=== PATIENT | female | born 1970 | race Caucasian/White ===

== ENCOUNTER 2020-02-10 09:00 | Outpatient (CLI) | payer MEDICARE | END 2020-02-10 23:59 | disposition home or self-care (01) | LOC: MSC 09:00 | PROVIDERS: ATTEND Internal Medicine | DX: G35 Multiple sclerosis (principal); G90.09 Other idiopathic peripheral autonomic neuropathy; I11.9 Hypertensive heart disease without heart failure; R29.898 Other symptoms and signs involving the musculoskeletal system; N31.9 Neuromuscular dysfunction of bladder, unspecified; Z87.440 Personal history of urinary (tract) infections; Z96.0 Presence of urogenital implants; G47.00 Insomnia, unspecified; K21.9 Gastro-esophageal reflux disease without esophagitis; M54.2 Cervicalgia; L89.90 Pressure ulcer of unspecified site, unspecified stage; Z99.3 Dependence on wheelchair; Z79.899 Other long term (current) drug therapy ==

== ENCOUNTER 2020-02-19 09:00 | Outpatient (CLI) | payer MEDICARE, OTHER | END 2020-02-19 23:59 | disposition home or self-care (01) | LOC: WOU 09:00 | PROVIDERS: ATTEND Podiatrist Foot & Ankle Surgery | DX: L60.1 Onycholysis (principal); B35.1 Tinea unguium; G35 Multiple sclerosis; Z99.3 Dependence on wheelchair | CPT/HCPCS: 11730 ==

== ENCOUNTER 2020-02-24 08:00 | Outpatient (CLI) | payer MEDICARE, OTHER ==
[2020-02-24] MEDS ORDERED: CLOTRIMAZOLE 1% 15 GM TUBE TP ONE (08:42)
[2020-02-24 09:25] LABS: BILIRUBIN,URINE NEGATIVE (NEGATIVE); BLOOD, URINE SMALL Ery/uL (NEGATIVE); KETONES,URINE NEGATIVE (NEGATIVE); LEUKOCYTE ESTERASE ,URINE LARGE (NEGATIVE); NITRITE, URINE POSITIVE (NEGATIVE); PROTEIN,URINE 100 mg/dl (NEGATIVE); UGLUCOSE NEGATIVE (NEGATIVE); UROBILINOGEN,URINE 0.2 EU/dL (0.2)
[2020-02-24 15:07] LABS: APPEARANCE,URINE CLEAR (CLEAR); BACTERIA,URINE Many /HPF (None Seen); SQUAMOUS EPITHELIAL CELL,UR Moderate /HPF (None Seen); WBC,URINE 21-50 /HPF (0-3)
[2020-02-24 15:08] LABS: COLOR,URINE YELLOW (YELLOW); URINE AMORPHOUS PHOSPHATES Few /HPF (None Seen)
== END 2020-02-24 23:59 | disposition home health service (06) ==
LOC: WOU 08:00
PROVIDERS: ATTEND Specialist
DX: L89.322 Pressure ulcer of left buttock, stage 2 (principal); L89.312 Pressure ulcer of right buttock, stage 2; G35 Multiple sclerosis; M62.81 Muscle weakness (generalized); B35.1 Tinea unguium; L60.1 Onycholysis; Z79.899 Other long term (current) drug therapy; Z96.0 Presence of urogenital implants
CPT/HCPCS: 81001; 87077; 87086; G0463; 81000-TC

== ENCOUNTER 2020-03-18 12:48 | Outpatient (CLI) | payer MEDICARE, OTHER | END 2020-03-18 23:59 | disposition home or self-care (01) | LOC: MSC 12:48 | PROVIDERS: ATTEND Internal Medicine | DX: B37.49 Other urogenital candidiasis (principal); G90.09 Other idiopathic peripheral autonomic neuropathy; G35 Multiple sclerosis; R29.898 Other symptoms and signs involving the musculoskeletal system; I11.9 Hypertensive heart disease without heart failure; N31.9 Neuromuscular dysfunction of bladder, unspecified; G47.00 Insomnia, unspecified; Z87.440 Personal history of urinary (tract) infections; K76.89 Other specified diseases of liver; K21.9 Gastro-esophageal reflux disease without esophagitis; Z79.899 Other long term (current) drug therapy ==

== ENCOUNTER 2020-06-17 08:00 | Outpatient (CLI) | payer MEDICARE, OTHER | END 2020-06-17 23:59 | disposition home or self-care (01) | LOC: WOU 08:00 | PROVIDERS: ATTEND Podiatrist Foot & Ankle Surgery | DX: B35.1 Tinea unguium (principal); L60.1 Onycholysis; G35 Multiple sclerosis; M62.81 Muscle weakness (generalized); L89.313 Pressure ulcer of right buttock, stage 3; L89.322 Pressure ulcer of left buttock, stage 2; M21.372 Foot drop, left foot; M21.371 Foot drop, right foot; M79.672 Pain in left foot; M79.671 Pain in right foot; Z79.899 Other long term (current) drug therapy | CPT/HCPCS: G0463 ==

== ENCOUNTER 2020-06-22 08:00 | Outpatient (CLI) | payer MEDICARE, OTHER ==
[2020-06-22] MEDS ORDERED: CLOTRIMAZOLE 1% 15 GM TUBE TP ONE (08:34)
[2020-06-22] MEDS ORDERED: Z GUARD REMEDY 2 OZ OINT TP ONE (08:34)
== END 2020-06-22 23:59 | disposition home health service (06) ==
LOC: WOU 08:00
PROVIDERS: ATTEND Specialist
DX: L89.322 Pressure ulcer of left buttock, stage 2 (principal); L89.312 Pressure ulcer of right buttock, stage 2; G35 Multiple sclerosis; M21.372 Foot drop, left foot; M21.371 Foot drop, right foot; M62.81 Muscle weakness (generalized); L60.1 Onycholysis; B35.1 Tinea unguium; Z79.899 Other long term (current) drug therapy
CPT/HCPCS: G0463

== ENCOUNTER 2020-06-23 09:10 | Outpatient (CLI) | payer MEDICARE, OTHER | END 2020-06-23 23:59 | disposition home or self-care (01) | LOC: MSC 09:10 | PROVIDERS: ATTEND Internal Medicine | DX: G90.09 Other idiopathic peripheral autonomic neuropathy (principal); J20.9 Acute bronchitis, unspecified; G35 Multiple sclerosis; R29.898 Other symptoms and signs involving the musculoskeletal system; I11.9 Hypertensive heart disease without heart failure; N31.9 Neuromuscular dysfunction of bladder, unspecified; G47.00 Insomnia, unspecified; K21.9 Gastro-esophageal reflux disease without esophagitis; L89.90 Pressure ulcer of unspecified site, unspecified stage; B37.41 Candidal cystitis and urethritis; Z87.440 Personal history of urinary (tract) infections; Z79.899 Other long term (current) drug therapy ==

== ENCOUNTER 2020-08-09 08:55 | Outpatient (CLI) | payer MEDICARE, OTHER | END 2020-08-09 23:59 | disposition home or self-care (01) | LOC: MSC 08:55 | PROVIDERS: ATTEND Internal Medicine | DX: G35 Multiple sclerosis (principal); Z87.09 Personal history of other diseases of the respiratory system; R29.898 Other symptoms and signs involving the musculoskeletal system; N31.2 Flaccid neuropathic bladder, not elsewhere classified; G47.00 Insomnia, unspecified; K21.9 Gastro-esophageal reflux disease without esophagitis; Z87.440 Personal history of urinary (tract) infections; M54.2 Cervicalgia; Z74.01 Bed confinement status; L89.159 Pressure ulcer of sacral region, unspecified stage ==

== ENCOUNTER 2020-09-08 08:55 | Outpatient (CLI) | payer MEDICARE, OTHER ==
[2020-09-08 10:33] LABS: BILIRUBIN,URINE NEGATIVE (NEGATIVE); COLOR,URINE YELLOW (YELLOW); LEUKOCYTE ESTERASE ,URINE LARGE (NEGATIVE); NITRITE, URINE POSITIVE (NEGATIVE); PROTEIN,URINE 30 mg/dl (NEGATIVE); UGLUCOSE NEGATIVE (NEGATIVE); UROBILINOGEN,URINE 0.2 EU/dL (0.2)
[2020-09-08 12:34] LABS: WBC,URINE TOO NUMEROUS TO COUN /HPF (0-3)
[2020-09-08 12:35] LABS: BACTERIA,URINE Many /HPF (None Seen)
[2020-09-08 12:36] LABS: SQUAMOUS EPITHELIAL CELL,UR Moderate /HPF (None Seen)
== END 2020-09-08 23:59 | disposition home or self-care (01) ==
LOC: MSC 08:55
PROVIDERS: ATTEND Internal Medicine
DX: M79.651 Pain in right thigh (principal); N39.0 Urinary tract infection, site not specified; M24.541 Contracture, right hand; G35 Multiple sclerosis; G90.09 Other idiopathic peripheral autonomic neuropathy; R29.898 Other symptoms and signs involving the musculoskeletal system; N31.9 Neuromuscular dysfunction of bladder, unspecified; I11.9 Hypertensive heart disease without heart failure; G47.00 Insomnia, unspecified; M54.2 Cervicalgia; L89.90 Pressure ulcer of unspecified site, unspecified stage; Z79.899 Other long term (current) drug therapy; Z79.2 Long term (current) use of antibiotics; Z99.3 Dependence on wheelchair; G82.20 Paraplegia, unspecified; Z74.01 Bed confinement status
CPT/HCPCS: 81001; 87086 ×2; 87186 ×2; G0463

== ENCOUNTER 2020-11-28 13:06 | Outpatient (CLI) | payer MEDICARE, OTHER | END 2020-11-28 23:59 | disposition home or self-care (01) | LOC: MSC 13:06 | PROVIDERS: ATTEND Internal Medicine | DX: R10.12 Left upper quadrant pain (principal); M75.01 Adhesive capsulitis of right shoulder; N39.0 Urinary tract infection, site not specified; M20.091 Other deformity of right finger(s); M79.659 Pain in unspecified thigh; M24.541 Contracture, right hand; G35 Multiple sclerosis; Z99.3 Dependence on wheelchair; G90.09 Other idiopathic peripheral autonomic neuropathy; R29.898 Other symptoms and signs involving the musculoskeletal system; I11.9 Hypertensive heart disease without heart failure; N31.9 Neuromuscular dysfunction of bladder, unspecified; G47.00 Insomnia, unspecified; K21.9 Gastro-esophageal reflux disease without esophagitis; L89.90 Pressure ulcer of unspecified site, unspecified stage; Z79.2 Long term (current) use of antibiotics; Z79.899 Other long term (current) drug therapy ==

== ENCOUNTER 2020-12-02 09:00 | Outpatient (CLI) | payer MEDICARE, OTHER ==
[2020-12-02] MEDS ORDERED: BACI/NEOM/POLY B OINT PKT 1 UDPKT PACKET ONE (09:17)
== END 2020-12-02 23:59 | disposition home health service (06) ==
LOC: WOU 09:00
PROVIDERS: ATTEND Podiatrist Foot & Ankle Surgery
DX: L60.0 Ingrowing nail (principal); L60.1 Onycholysis; B35.1 Tinea unguium; M62.81 Muscle weakness (generalized); M21.372 Foot drop, left foot; M21.371 Foot drop, right foot; L89.322 Pressure ulcer of left buttock, stage 2; Z99.3 Dependence on wheelchair; Z79.899 Other long term (current) drug therapy
CPT/HCPCS: 11730; 11732

== ENCOUNTER 2020-12-07 09:41 | Outpatient (CLI) | payer MEDICARE, OTHER | END 2020-12-07 23:59 | disposition home or self-care (01) | LOC: MRI 09:41 | PROVIDERS: ATTEND Internal Medicine | DX: M19.011 Primary osteoarthritis, right shoulder (principal); M75.00 Adhesive capsulitis of unspecified shoulder | CPT/HCPCS: 73221-TC ==

== ENCOUNTER 2020-12-14 11:00 | Outpatient (CLI) | payer MEDICARE, OTHER ==
[2020-12-14] MEDS ORDERED: LIDOCAINE HCL/MPF 1% 30 ML VIAL IJ ONE (11:43)
[2020-12-14] MEDS ORDERED: SILVER NITRATE APPLICATOR 1 EA BOX ONE (11:56)
== END 2020-12-14 23:59 | disposition home health service (06) ==
LOC: WOU 11:00
PROVIDERS: ATTEND Specialist
DX: L89.322 Pressure ulcer of left buttock, stage 2 (principal); G35 Multiple sclerosis; L60.0 Ingrowing nail; L60.1 Onycholysis; B35.1 Tinea unguium; M21.372 Foot drop, left foot; M21.371 Foot drop, right foot; Z79.899 Other long term (current) drug therapy
CPT/HCPCS: 11104; 87070; 87075; 87102; 87186; 88305; J3490

== ENCOUNTER 2020-12-21 08:30 | Outpatient (CLI) | payer MEDICARE, OTHER | END 2020-12-21 23:59 | disposition short-term general hospital (02) | LOC: WOU 08:30 | PROVIDERS: ATTEND Specialist | DX: L89.322 Pressure ulcer of left buttock, stage 2 (principal); G35 Multiple sclerosis; M62.81 Muscle weakness (generalized); B35.1 Tinea unguium; L60.1 Onycholysis; L60.0 Ingrowing nail; M21.372 Foot drop, left foot; M21.371 Foot drop, right foot; Z99.3 Dependence on wheelchair; Z79.899 Other long term (current) drug therapy | CPT/HCPCS: 97597; A6197 ==

== ENCOUNTER → 2020-12-27 | Outpatient (CLI) | payer MEDICARE, OTHER | END | disposition home or self-care (01) | LOC: MSC 15:00 | PROVIDERS: ATTEND Internal Medicine | DX: M75.102 Unspecified rotator cuff tear or rupture of left shoulder, not specified as traumatic (principal); M77.8 Other enthesopathies, not elsewhere classified; M75.02 Adhesive capsulitis of left shoulder; G90.09 Other idiopathic peripheral autonomic neuropathy; N39.0 Urinary tract infection, site not specified; M24.541 Contracture, right hand; M79.651 Pain in right thigh; G35 Multiple sclerosis; R29.898 Other symptoms and signs involving the musculoskeletal system; I11.9 Hypertensive heart disease without heart failure; N31.9 Neuromuscular dysfunction of bladder, unspecified; G47.00 Insomnia, unspecified; K21.9 Gastro-esophageal reflux disease without esophagitis; L89.90 Pressure ulcer of unspecified site, unspecified stage; Z74.01 Bed confinement status; Z79.2 Long term (current) use of antibiotics; Z79.899 Other long term (current) drug therapy ==

== ENCOUNTER 2021-01-27 08:30 | Outpatient (CLI) | payer MEDICARE, OTHER ==
[2021-01-27] MEDS ORDERED: UREA 10% -AHA 4% CREAM 57 GM TUBE ONE (09:16)
== END 2021-01-27 23:59 | disposition home health service (06) ==
LOC: WOU 08:30
PROVIDERS: ATTEND Podiatrist Foot & Ankle Surgery
DX: L60.0 Ingrowing nail (principal); B35.1 Tinea unguium; L60.1 Onycholysis; G35 Multiple sclerosis; M62.81 Muscle weakness (generalized); M21.372 Foot drop, left foot; M21.371 Foot drop, right foot; L89.322 Pressure ulcer of left buttock, stage 2; Z79.899 Other long term (current) drug therapy
CPT/HCPCS: G0463

== ENCOUNTER → 2021-02-20 | Outpatient (CLI) | payer MEDICARE, OTHER | END | disposition home or self-care (01) | LOC: MSC 15:13 | PROVIDERS: ATTEND Internal Medicine | DX: R31.9 Hematuria, unspecified (principal); M77.8 Other enthesopathies, not elsewhere classified; M75.100 Unspecified rotator cuff tear or rupture of unspecified shoulder, not specified as traumatic; M75.00 Adhesive capsulitis of unspecified shoulder; N39.0 Urinary tract infection, site not specified; M24.541 Contracture, right hand; M79.651 Pain in right thigh; G35 Multiple sclerosis; Z99.3 Dependence on wheelchair; G90.09 Other idiopathic peripheral autonomic neuropathy; I11.9 Hypertensive heart disease without heart failure; G47.00 Insomnia, unspecified; K21.9 Gastro-esophageal reflux disease without esophagitis; Z74.01 Bed confinement status; Z79.2 Long term (current) use of antibiotics; Z79.899 Other long term (current) drug therapy ==

== ENCOUNTER 2021-03-01 10:20 | Outpatient (CLI) | payer MEDICARE, OTHER | END 2021-03-01 23:59 | disposition home health service (06) | LOC: WOU 10:20 | PROVIDERS: ATTEND Specialist | DX: L89.320 Pressure ulcer of left buttock, unstageable (principal); L89.890 Pressure ulcer of other site, unstageable; G35 Multiple sclerosis; G82.50 Quadriplegia, unspecified; R32 Unspecified urinary incontinence; Z74.09 Other reduced mobility; Z99.3 Dependence on wheelchair; G62.9 Polyneuropathy, unspecified; M62.50 Muscle wasting and atrophy, not elsewhere classified, unspecified site; L60.1 Onycholysis; B35.1 Tinea unguium; M21.371 Foot drop, right foot; M21.372 Foot drop, left foot; L60.0 Ingrowing nail; Z88.1 Allergy status to other antibiotic agents; Z88.2 Allergy status to sulfonamides | CPT/HCPCS: A6209; G0463 ==

== ENCOUNTER 2021-03-14 09:00 | Outpatient (CLI) | payer MEDICARE, OTHER | END 2021-03-14 23:59 | disposition home or self-care (01) | LOC: MSC 09:00 | PROVIDERS: ATTEND Internal Medicine | DX: R10.9 Unspecified abdominal pain (principal); M79.81 Nontraumatic hematoma of soft tissue; M77.8 Other enthesopathies, not elsewhere classified; M75.100 Unspecified rotator cuff tear or rupture of unspecified shoulder, not specified as traumatic; M75.00 Adhesive capsulitis of unspecified shoulder; N39.0 Urinary tract infection, site not specified; N31.9 Neuromuscular dysfunction of bladder, unspecified; M24.541 Contracture, right hand; M79.651 Pain in right thigh; G35 Multiple sclerosis; G90.09 Other idiopathic peripheral autonomic neuropathy; I11.9 Hypertensive heart disease without heart failure; G47.00 Insomnia, unspecified; K21.9 Gastro-esophageal reflux disease without esophagitis; L89.90 Pressure ulcer of unspecified site, unspecified stage; Z74.01 Bed confinement status; Z79.2 Long term (current) use of antibiotics; Z79.899 Other long term (current) drug therapy ==

== ENCOUNTER 2021-03-15 10:00 | Outpatient (CLI) | payer MEDICARE, OTHER ==
[2021-03-15] MEDS ORDERED: LIDOCAINE SOLN 4% 50 ML BOTTLE ONE (10:21)
[2021-03-15] MEDS ORDERED: COLLAGENASE 5 GM TUBE UD TP ONE (10:51)
== END 2021-03-15 23:59 | disposition home health service (06) ==
LOC: WOU 10:00
PROVIDERS: ATTEND Specialist
DX: L89.013 Pressure ulcer of right elbow, stage 3 (principal); L89.323 Pressure ulcer of left buttock, stage 3; Z88.1 Allergy status to other antibiotic agents; Z88.2 Allergy status to sulfonamides; G35 Multiple sclerosis; Z99.3 Dependence on wheelchair; M21.372 Foot drop, left foot; M21.371 Foot drop, right foot; B35.1 Tinea unguium; L60.1 Onycholysis; M62.81 Muscle weakness (generalized); L60.0 Ingrowing nail; Z79.899 Other long term (current) drug therapy
CPT/HCPCS: 11042

== ENCOUNTER 2021-03-22 09:35 | Outpatient (CLI) | payer MEDICARE, OTHER | END 2021-03-22 23:59 | disposition home or self-care (01) | LOC: VASLAB 09:35 | PROVIDERS: ATTEND Internal Medicine | DX: I87.2 Venous insufficiency (chronic) (peripheral) (principal); G35 Multiple sclerosis; Z99.3 Dependence on wheelchair | CPT/HCPCS: G0463 ==

== ENCOUNTER 2021-03-29 09:15 | Outpatient (CLI) | payer MEDICARE, OTHER | END 2021-03-29 23:59 | disposition home health service (06) | LOC: WOU 09:15 | PROVIDERS: ATTEND Specialist | DX: L89.013 Pressure ulcer of right elbow, stage 3 (principal); L89.323 Pressure ulcer of left buttock, stage 3; G35 Multiple sclerosis; L60.1 Onycholysis; B35.1 Tinea unguium; M62.81 Muscle weakness (generalized); M21.372 Foot drop, left foot; M21.371 Foot drop, right foot; Z79.899 Other long term (current) drug therapy | CPT/HCPCS: G0463 ==

== ENCOUNTER 2021-04-06 09:00 | Outpatient (CLI) | payer MEDICARE, OTHER | END 2021-04-06 23:59 | disposition home or self-care (01) | LOC: MSC 09:00 | PROVIDERS: ATTEND Internal Medicine | DX: R19.7 Diarrhea, unspecified (principal); M77.8 Other enthesopathies, not elsewhere classified; M75.100 Unspecified rotator cuff tear or rupture of unspecified shoulder, not specified as traumatic; M75.00 Adhesive capsulitis of unspecified shoulder; N39.0 Urinary tract infection, site not specified; N31.9 Neuromuscular dysfunction of bladder, unspecified; M24.541 Contracture, right hand; M79.651 Pain in right thigh; G90.09 Other idiopathic peripheral autonomic neuropathy; R29.898 Other symptoms and signs involving the musculoskeletal system; I11.9 Hypertensive heart disease without heart failure; G47.00 Insomnia, unspecified; K21.9 Gastro-esophageal reflux disease without esophagitis; L89.90 Pressure ulcer of unspecified site, unspecified stage; Z74.01 Bed confinement status; Z99.3 Dependence on wheelchair; Z79.2 Long term (current) use of antibiotics; Z79.899 Other long term (current) drug therapy ==

== ENCOUNTER 2021-04-07 08:35 | Outpatient (CLI) | payer MEDICARE, OTHER ==
[2021-04-07] MEDS ORDERED: SILVER NITRATE APPLICATOR 1 EA BOX ONE (08:53)
== END 2021-04-07 23:59 | disposition home health service (06) ==
LOC: WOU 08:35
PROVIDERS: ATTEND Podiatrist Foot & Ankle Surgery
DX: L60.0 Ingrowing nail (principal); L60.1 Onycholysis; R60.0 Localized edema; G35 Multiple sclerosis; M21.372 Foot drop, left foot; M21.371 Foot drop, right foot; M62.81 Muscle weakness (generalized); Z99.3 Dependence on wheelchair; L89.323 Pressure ulcer of left buttock, stage 3; L89.013 Pressure ulcer of right elbow, stage 3; Z79.899 Other long term (current) drug therapy
CPT/HCPCS: G0463

== ENCOUNTER → 2021-04-19 | Outpatient (CLI) | payer MEDICARE, OTHER | END | disposition home or self-care (01) | LOC: MSC 14:30 | PROVIDERS: ATTEND Internal Medicine | DX: R19.7 Diarrhea, unspecified (principal); D75.1 Secondary polycythemia; M77.8 Other enthesopathies, not elsewhere classified; M75.100 Unspecified rotator cuff tear or rupture of unspecified shoulder, not specified as traumatic; M75.00 Adhesive capsulitis of unspecified shoulder; N39.0 Urinary tract infection, site not specified; N31.9 Neuromuscular dysfunction of bladder, unspecified; M24.541 Contracture, right hand; M79.651 Pain in right thigh; G90.09 Other idiopathic peripheral autonomic neuropathy; R29.898 Other symptoms and signs involving the musculoskeletal system; I11.9 Hypertensive heart disease without heart failure; G47.00 Insomnia, unspecified; K21.9 Gastro-esophageal reflux disease without esophagitis; L89.90 Pressure ulcer of unspecified site, unspecified stage; Z74.01 Bed confinement status; Z99.3 Dependence on wheelchair; Z79.2 Long term (current) use of antibiotics; Z79.899 Other long term (current) drug therapy ==

== ENCOUNTER 2021-05-04 14:00 | Outpatient (CLI) | payer MEDICARE, OTHER | END 2021-05-04 23:59 | disposition home or self-care (01) | LOC: MSC 14:00 | PROVIDERS: ATTEND Internal Medicine | DX: G35 Multiple sclerosis (principal); R19.7 Diarrhea, unspecified; D75.1 Secondary polycythemia; M77.8 Other enthesopathies, not elsewhere classified; M75.100 Unspecified rotator cuff tear or rupture of unspecified shoulder, not specified as traumatic; M75.00 Adhesive capsulitis of unspecified shoulder; N39.0 Urinary tract infection, site not specified; N31.9 Neuromuscular dysfunction of bladder, unspecified; Z96.0 Presence of urogenital implants; M24.541 Contracture, right hand; M79.651 Pain in right thigh; G90.09 Other idiopathic peripheral autonomic neuropathy; R29.898 Other symptoms and signs involving the musculoskeletal system; I11.9 Hypertensive heart disease without heart failure; G47.00 Insomnia, unspecified; K21.9 Gastro-esophageal reflux disease without esophagitis; L89.90 Pressure ulcer of unspecified site, unspecified stage; Z74.01 Bed confinement status; Z99.3 Dependence on wheelchair; Z79.2 Long term (current) use of antibiotics; Z79.899 Other long term (current) drug therapy ==

== ENCOUNTER 2021-05-17 14:00 | Outpatient (CLI) | payer MEDICARE, OTHER | END 2021-05-17 23:59 | disposition home or self-care (01) | LOC: MSC 14:00 | PROVIDERS: ATTEND Internal Medicine | DX: R25.2 Cramp and spasm (principal); G35 Multiple sclerosis; Z99.3 Dependence on wheelchair; R19.7 Diarrhea, unspecified; D75.1 Secondary polycythemia; M77.8 Other enthesopathies, not elsewhere classified; M75.100 Unspecified rotator cuff tear or rupture of unspecified shoulder, not specified as traumatic; M75.00 Adhesive capsulitis of unspecified shoulder; Z87.440 Personal history of urinary (tract) infections; M24.541 Contracture, right hand; M79.651 Pain in right thigh; G90.09 Other idiopathic peripheral autonomic neuropathy; R29.898 Other symptoms and signs involving the musculoskeletal system; I11.9 Hypertensive heart disease without heart failure; N31.9 Neuromuscular dysfunction of bladder, unspecified; Z96.0 Presence of urogenital implants; G47.00 Insomnia, unspecified; K21.9 Gastro-esophageal reflux disease without esophagitis; L89.90 Pressure ulcer of unspecified site, unspecified stage; Z74.01 Bed confinement status; Z79.2 Long term (current) use of antibiotics; Z79.899 Other long term (current) drug therapy ==

== ENCOUNTER 2021-05-23 09:00 | Outpatient (CLI) | payer MEDICARE, OTHER | END 2021-05-23 23:59 | disposition home or self-care (01) | LOC: MSC 09:00 | PROVIDERS: ATTEND Internal Medicine | DX: G35 Multiple sclerosis (principal); Z99.3 Dependence on wheelchair; R25.2 Cramp and spasm; R19.7 Diarrhea, unspecified; D75.1 Secondary polycythemia; M77.8 Other enthesopathies, not elsewhere classified; M75.100 Unspecified rotator cuff tear or rupture of unspecified shoulder, not specified as traumatic; M75.00 Adhesive capsulitis of unspecified shoulder; Z87.440 Personal history of urinary (tract) infections; Z79.2 Long term (current) use of antibiotics; M24.541 Contracture, right hand; M79.651 Pain in right thigh; G90.09 Other idiopathic peripheral autonomic neuropathy; R29.898 Other symptoms and signs involving the musculoskeletal system; I11.9 Hypertensive heart disease without heart failure; N31.9 Neuromuscular dysfunction of bladder, unspecified; Z96.0 Presence of urogenital implants; G47.00 Insomnia, unspecified; K21.9 Gastro-esophageal reflux disease without esophagitis; L89.90 Pressure ulcer of unspecified site, unspecified stage; Z74.01 Bed confinement status; Z79.899 Other long term (current) drug therapy ==

== ENCOUNTER → 2021-06-21 | Outpatient (CLI) | payer MEDICARE, OTHER | END | disposition home or self-care (01) | LOC: MSC 15:00 | PROVIDERS: ATTEND Internal Medicine | DX: G35 Multiple sclerosis (principal); Z99.3 Dependence on wheelchair; G83.89 Other specified paralytic syndromes; D75.1 Secondary polycythemia; M77.8 Other enthesopathies, not elsewhere classified; M75.100 Unspecified rotator cuff tear or rupture of unspecified shoulder, not specified as traumatic; M75.00 Adhesive capsulitis of unspecified shoulder; Z87.440 Personal history of urinary (tract) infections; Z79.2 Long term (current) use of antibiotics; M24.541 Contracture, right hand; M79.651 Pain in right thigh; G90.09 Other idiopathic peripheral autonomic neuropathy; R29.898 Other symptoms and signs involving the musculoskeletal system; I11.9 Hypertensive heart disease without heart failure; N31.9 Neuromuscular dysfunction of bladder, unspecified; Z96.0 Presence of urogenital implants; G47.00 Insomnia, unspecified; K21.9 Gastro-esophageal reflux disease without esophagitis; L89.90 Pressure ulcer of unspecified site, unspecified stage; Z74.01 Bed confinement status; Z79.899 Other long term (current) drug therapy ==

== ENCOUNTER 2021-07-20 11:45 | Outpatient (CLI) | payer MEDICARE, OTHER | END 2021-07-20 23:59 | disposition home or self-care (01) | LOC: MSC 11:45 | PROVIDERS: ATTEND Internal Medicine | DX: Z20.822 Contact with and (suspected) exposure to COVID-19 (principal); G35 Multiple sclerosis; G83.89 Other specified paralytic syndromes; Z99.3 Dependence on wheelchair; D75.1 Secondary polycythemia; M75.100 Unspecified rotator cuff tear or rupture of unspecified shoulder, not specified as traumatic; M75.00 Adhesive capsulitis of unspecified shoulder; Z87.440 Personal history of urinary (tract) infections; Z79.2 Long term (current) use of antibiotics; M24.541 Contracture, right hand; G90.09 Other idiopathic peripheral autonomic neuropathy; I11.9 Hypertensive heart disease without heart failure; N31.9 Neuromuscular dysfunction of bladder, unspecified; Z96.0 Presence of urogenital implants; G47.00 Insomnia, unspecified; K21.9 Gastro-esophageal reflux disease without esophagitis; L89.90 Pressure ulcer of unspecified site, unspecified stage; Z74.01 Bed confinement status; Z79.899 Other long term (current) drug therapy ==

== ENCOUNTER 2021-08-18 08:50 | Outpatient (CLI) | payer MEDICARE, OTHER | END 2021-08-18 23:59 | disposition home health service (06) | LOC: WOU 08:50 | PROVIDERS: ATTEND Podiatrist Foot & Ankle Surgery | DX: L60.0 Ingrowing nail (principal); B35.1 Tinea unguium; L60.1 Onycholysis; G35 Multiple sclerosis; M62.81 Muscle weakness (generalized); M21.372 Foot drop, left foot; M21.371 Foot drop, right foot; Z99.3 Dependence on wheelchair | CPT/HCPCS: G0463 ==

== ENCOUNTER → 2021-08-29 | Outpatient (CLI) | payer MEDICARE, OTHER | END | disposition home or self-care (01) | LOC: MSC 02-20 15:15 | PROVIDERS: ATTEND Internal Medicine | DX: G35 Multiple sclerosis (principal); Z99.3 Dependence on wheelchair; Z20.822 Contact with and (suspected) exposure to COVID-19; G83.89 Other specified paralytic syndromes; D75.1 Secondary polycythemia; M75.100 Unspecified rotator cuff tear or rupture of unspecified shoulder, not specified as traumatic; M75.00 Adhesive capsulitis of unspecified shoulder; Z87.440 Personal history of urinary (tract) infections; Z79.2 Long term (current) use of antibiotics; M24.541 Contracture, right hand; G90.09 Other idiopathic peripheral autonomic neuropathy; I11.9 Hypertensive heart disease without heart failure; N31.9 Neuromuscular dysfunction of bladder, unspecified; Z96.0 Presence of urogenital implants; G47.00 Insomnia, unspecified; K21.9 Gastro-esophageal reflux disease without esophagitis; L89.90 Pressure ulcer of unspecified site, unspecified stage; Z74.01 Bed confinement status; Z79.899 Other long term (current) drug therapy ==

== ENCOUNTER → 2021-09-12 | Outpatient (CLI) | payer MEDICARE, OTHER | END | disposition home or self-care (01) | LOC: MSC 14:00 | PROVIDERS: ATTEND Internal Medicine | DX: G35 Multiple sclerosis (principal); Z99.3 Dependence on wheelchair; G83.89 Other specified paralytic syndromes; L89.92 Pressure ulcer of unspecified site, stage 2; Z74.01 Bed confinement status; Z20.822 Contact with and (suspected) exposure to COVID-19; D75.1 Secondary polycythemia; M75.100 Unspecified rotator cuff tear or rupture of unspecified shoulder, not specified as traumatic; M75.00 Adhesive capsulitis of unspecified shoulder; Z87.440 Personal history of urinary (tract) infections; Z79.2 Long term (current) use of antibiotics; M24.541 Contracture, right hand; G90.09 Other idiopathic peripheral autonomic neuropathy; I11.9 Hypertensive heart disease without heart failure; N31.9 Neuromuscular dysfunction of bladder, unspecified; Z96.0 Presence of urogenital implants; G47.00 Insomnia, unspecified; K21.9 Gastro-esophageal reflux disease without esophagitis; Z79.899 Other long term (current) drug therapy ==

== ENCOUNTER 2021-09-13 12:25 | Outpatient (CLI) | payer MEDICARE, OTHER ==
[2021-09-13] MEDS ORDERED: Z GUARD REMEDY 2 OZ OINT TP ONE (13:29)
== END 2021-09-13 23:59 | disposition home or self-care (01) ==
LOC: WOU 12:25
PROVIDERS: ATTEND Specialist
DX: L89.322 Pressure ulcer of left buttock, stage 2 (principal); L60.0 Ingrowing nail; G35 Multiple sclerosis; L60.1 Onycholysis; B35.1 Tinea unguium; M21.372 Foot drop, left foot; M21.371 Foot drop, right foot; M62.81 Muscle weakness (generalized); Z79.899 Other long term (current) drug therapy
CPT/HCPCS: G0463

== ENCOUNTER → 2021-10-12 | Outpatient (CLI) | payer MEDICARE, OTHER | END | disposition home or self-care (01) | LOC: MSC 11:00 | PROVIDERS: ATTEND Internal Medicine | DX: G35 Multiple sclerosis (principal); Z99.3 Dependence on wheelchair; L89.92 Pressure ulcer of unspecified site, stage 2; G83.89 Other specified paralytic syndromes; Z74.01 Bed confinement status; Z20.822 Contact with and (suspected) exposure to COVID-19; D75.1 Secondary polycythemia; M75.100 Unspecified rotator cuff tear or rupture of unspecified shoulder, not specified as traumatic; M75.00 Adhesive capsulitis of unspecified shoulder; Z87.440 Personal history of urinary (tract) infections; Z79.2 Long term (current) use of antibiotics; M24.541 Contracture, right hand; G90.09 Other idiopathic peripheral autonomic neuropathy; I11.9 Hypertensive heart disease without heart failure; N31.9 Neuromuscular dysfunction of bladder, unspecified; Z96.0 Presence of urogenital implants; G47.00 Insomnia, unspecified; K21.9 Gastro-esophageal reflux disease without esophagitis; Z79.899 Other long term (current) drug therapy ==

== ENCOUNTER 2021-10-16 09:21 | Outpatient (CLI) | payer MEDICARE, OTHER ==
[2021-10-16 10:49] LABS: BASOPHILS # (AUTO) 0.1 K/uL (0.0-0.2); BASOPHILS % (AUTO) 0.6 % (0.0-2.0); EOSINOPHILS % (AUTO) 1.5 % (0.0-6.0); HEMATOCRIT 49 % (33-45); HEMOGLOBIN 16.6 g/dL (11.5-14.8); LYMPHOCYTES # (AUTO) 2.7 K/uL (0.8-4.8); LYMPHOCYTES % (AUTO) 31.8 % (20.0-44.0); MEAN CORPUSCULAR HGB CONC 34 g/dl (31.0-36.0); MEAN CORPUSCULAR VOLUME 89 fL (82-100); MONOCYTES # (AUTO) 0.4 K/uL (0.1-1.30); MONOCYTES % (AUTO) 4.2 % (2.0-12.0); NEUTROPHILS # (AUTO) 5.3 K/uL (1.8-8.9); NEUTROPHILS % (AUTO) 61.9 % (43.0-81.0); PLATELET COUNT (AUTO) 295 K/uL (150-450); RED BLOOD CELL COUNT(AUTO) 5.53 MIL/uL (4.0-5.2); WHITE BLOOD COUNT (AUTO) 8.6 K/uL (4.3-11.0)
[2021-10-16 11:39] LABS: ALBUMIN 3.3 g/dL (3.4-5.0); BILIRUBIN,TOTAL 0.4 mg/dL (0.2-1.0); CALCIUM, SERUM 8.6 mg/dL (8.5-10.1); CREATININE 0.7 mg/dL (0.6-1.3); POTASSIUM 4.2 mmol/L (3.5-5.1); TOTAL PROTEIN, SERUM 7.5 g/dL (6.4-8.2)
== END 2021-10-16 23:59 | disposition home or self-care (01) ==
LOC: LAB 09:21
PROVIDERS: ATTEND Internal Medicine
DX: Z01.818 Encounter for other preprocedural examination (principal)
CPT/HCPCS: 36415; 71046; 80053-TC; 85025-TC; 85610-TC; 85730-TC

== ENCOUNTER 2021-10-18 15:00 | Outpatient (CLI) | payer MEDICARE, OTHER | END 2021-10-18 23:59 | disposition home or self-care (01) | LOC: MSC 15:00 | PROVIDERS: ATTEND Internal Medicine | DX: Z01.818 Encounter for other preprocedural examination (principal); N21.0 Calculus in bladder; G35 Multiple sclerosis; Z99.3 Dependence on wheelchair; R25.2 Cramp and spasm; L89.92 Pressure ulcer of unspecified site, stage 2; Z74.01 Bed confinement status; Z20.822 Contact with and (suspected) exposure to COVID-19; D75.1 Secondary polycythemia; M75.100 Unspecified rotator cuff tear or rupture of unspecified shoulder, not specified as traumatic; M75.00 Adhesive capsulitis of unspecified shoulder; M24.541 Contracture, right hand; G90.09 Other idiopathic peripheral autonomic neuropathy; I11.9 Hypertensive heart disease without heart failure; N31.9 Neuromuscular dysfunction of bladder, unspecified; Z96.0 Presence of urogenital implants; G47.00 Insomnia, unspecified; K21.9 Gastro-esophageal reflux disease without esophagitis; Z87.440 Personal history of urinary (tract) infections; Z79.2 Long term (current) use of antibiotics; Z79.899 Other long term (current) drug therapy ==

== ENCOUNTER → 2021-11-16 | Outpatient (CLI) | payer MEDICARE, OTHER | END | disposition home or self-care (01) | LOC: MSC 11:15 | PROVIDERS: ATTEND Internal Medicine | DX: G35 Multiple sclerosis (principal); Z99.3 Dependence on wheelchair; Z87.442 Personal history of urinary calculi; Z98.890 Other specified postprocedural states; Z87.440 Personal history of urinary (tract) infections; L89.92 Pressure ulcer of unspecified site, stage 2; Z74.01 Bed confinement status; R25.2 Cramp and spasm; D75.1 Secondary polycythemia; M75.100 Unspecified rotator cuff tear or rupture of unspecified shoulder, not specified as traumatic; M75.00 Adhesive capsulitis of unspecified shoulder; M24.541 Contracture, right hand; G90.09 Other idiopathic peripheral autonomic neuropathy; I11.9 Hypertensive heart disease without heart failure; N31.9 Neuromuscular dysfunction of bladder, unspecified; Z96.0 Presence of urogenital implants; G47.00 Insomnia, unspecified; K21.9 Gastro-esophageal reflux disease without esophagitis; Z79.899 Other long term (current) drug therapy ==

== ENCOUNTER 2021-11-17 09:35 | Outpatient (CLI) | payer MEDICARE, OTHER | END 2021-11-17 23:59 | disposition home health service (06) | LOC: WOU 09:35 | PROVIDERS: ATTEND Podiatrist Foot & Ankle Surgery | DX: L60.0 Ingrowing nail (principal); L60.1 Onycholysis; B35.1 Tinea unguium; G35 Multiple sclerosis; Z99.3 Dependence on wheelchair; M21.372 Foot drop, left foot; M21.371 Foot drop, right foot; Z79.899 Other long term (current) drug therapy | CPT/HCPCS: G0463 ==

== ENCOUNTER → 2021-11-22 | Outpatient (CLI) | payer MEDICARE, OTHER | END | disposition home or self-care (01) | LOC: MSC 15:30 | PROVIDERS: ATTEND Internal Medicine | DX: Z51.89 Encounter for other specified aftercare (principal); G35 Multiple sclerosis; Z99.3 Dependence on wheelchair; Z87.442 Personal history of urinary calculi; Z98.890 Other specified postprocedural states; L89.92 Pressure ulcer of unspecified site, stage 2; Z74.01 Bed confinement status; R25.2 Cramp and spasm; Z87.440 Personal history of urinary (tract) infections; D75.1 Secondary polycythemia; M75.100 Unspecified rotator cuff tear or rupture of unspecified shoulder, not specified as traumatic; M75.00 Adhesive capsulitis of unspecified shoulder; M24.541 Contracture, right hand; G90.09 Other idiopathic peripheral autonomic neuropathy; I11.9 Hypertensive heart disease without heart failure; N31.9 Neuromuscular dysfunction of bladder, unspecified; Z96.0 Presence of urogenital implants; G47.00 Insomnia, unspecified; K21.9 Gastro-esophageal reflux disease without esophagitis; Z79.899 Other long term (current) drug therapy ==

== ENCOUNTER → 2021-12-14 | Outpatient (CLI) | payer MEDICARE, OTHER | END | disposition home or self-care (01) | LOC: MSC 15:00 | PROVIDERS: ATTEND Internal Medicine | DX: G35 Multiple sclerosis (principal); Z99.3 Dependence on wheelchair; Z60.9 Problem related to social environment, unspecified; Z87.442 Personal history of urinary calculi; Z98.890 Other specified postprocedural states; L89.92 Pressure ulcer of unspecified site, stage 2; Z74.01 Bed confinement status; R25.2 Cramp and spasm; Z87.440 Personal history of urinary (tract) infections; D75.1 Secondary polycythemia; M75.100 Unspecified rotator cuff tear or rupture of unspecified shoulder, not specified as traumatic; M75.00 Adhesive capsulitis of unspecified shoulder; M24.541 Contracture, right hand; G90.09 Other idiopathic peripheral autonomic neuropathy; I11.9 Hypertensive heart disease without heart failure; N31.9 Neuromuscular dysfunction of bladder, unspecified; Z96.0 Presence of urogenital implants; G47.00 Insomnia, unspecified; K21.9 Gastro-esophageal reflux disease without esophagitis; Z79.899 Other long term (current) drug therapy ==

== ENCOUNTER → 2021-12-19 | Outpatient (CLI) | payer MEDICARE, OTHER | END | disposition home or self-care (01) | LOC: MSC 14:30 | PROVIDERS: ATTEND Internal Medicine | DX: G35 Multiple sclerosis (principal); Z99.3 Dependence on wheelchair; Z60.9 Problem related to social environment, unspecified; Z87.442 Personal history of urinary calculi; Z98.890 Other specified postprocedural states; L89.92 Pressure ulcer of unspecified site, stage 2; Z74.01 Bed confinement status; R25.2 Cramp and spasm; Z87.440 Personal history of urinary (tract) infections; D75.1 Secondary polycythemia; M75.100 Unspecified rotator cuff tear or rupture of unspecified shoulder, not specified as traumatic; M75.00 Adhesive capsulitis of unspecified shoulder; M24.541 Contracture, right hand; G90.09 Other idiopathic peripheral autonomic neuropathy; I11.9 Hypertensive heart disease without heart failure; N31.9 Neuromuscular dysfunction of bladder, unspecified; Z96.0 Presence of urogenital implants; G47.00 Insomnia, unspecified; K21.9 Gastro-esophageal reflux disease without esophagitis; Z79.899 Other long term (current) drug therapy ==

== ENCOUNTER 2022-01-10 15:00 | Outpatient (CLI) | payer MEDICARE, OTHER | END 2022-01-10 23:59 | disposition home or self-care (01) | LOC: MSC 15:00 | PROVIDERS: ATTEND Internal Medicine | DX: G35 Multiple sclerosis (principal); G83.10 Monoplegia of lower limb affecting unspecified side; R25.2 Cramp and spasm; Z99.3 Dependence on wheelchair; Z60.9 Problem related to social environment, unspecified; L89.92 Pressure ulcer of unspecified site, stage 2; Z74.01 Bed confinement status; D75.1 Secondary polycythemia; M75.100 Unspecified rotator cuff tear or rupture of unspecified shoulder, not specified as traumatic; M75.00 Adhesive capsulitis of unspecified shoulder; M24.541 Contracture, right hand; G90.09 Other idiopathic peripheral autonomic neuropathy; I11.9 Hypertensive heart disease without heart failure; N31.9 Neuromuscular dysfunction of bladder, unspecified; Z96.0 Presence of urogenital implants; G47.00 Insomnia, unspecified; K21.9 Gastro-esophageal reflux disease without esophagitis; Z87.440 Personal history of urinary (tract) infections; Z87.442 Personal history of urinary calculi; Z98.890 Other specified postprocedural states; Z79.899 Other long term (current) drug therapy ==

== ENCOUNTER → 2022-01-29 | Outpatient (CLI) | payer MEDICARE, OTHER | END | disposition home or self-care (01) | LOC: MSC 13:00 | PROVIDERS: ATTEND Internal Medicine | DX: G35 Multiple sclerosis (principal); G83.10 Monoplegia of lower limb affecting unspecified side; R25.2 Cramp and spasm; Z60.9 Problem related to social environment, unspecified; L89.92 Pressure ulcer of unspecified site, stage 2; Z74.01 Bed confinement status; D75.1 Secondary polycythemia; M75.100 Unspecified rotator cuff tear or rupture of unspecified shoulder, not specified as traumatic; M75.00 Adhesive capsulitis of unspecified shoulder; M24.541 Contracture, right hand; G90.09 Other idiopathic peripheral autonomic neuropathy; I11.9 Hypertensive heart disease without heart failure; N31.9 Neuromuscular dysfunction of bladder, unspecified; Z96.0 Presence of urogenital implants; G47.00 Insomnia, unspecified; K21.9 Gastro-esophageal reflux disease without esophagitis; Z87.440 Personal history of urinary (tract) infections; Z98.890 Other specified postprocedural states; Z79.899 Other long term (current) drug therapy ==

== ENCOUNTER 2022-05-01 11:15 | Outpatient (CLI) | payer MEDICARE, OTHER | END 2022-05-01 23:59 | disposition home or self-care (01) | LOC: MSC 11:15 | PROVIDERS: ATTEND Internal Medicine | DX: G35 Multiple sclerosis (principal); G83.10 Monoplegia of lower limb affecting unspecified side; R06.02 Shortness of breath; R25.2 Cramp and spasm; L89.92 Pressure ulcer of unspecified site, stage 2; Z74.01 Bed confinement status; D75.1 Secondary polycythemia; M75.100 Unspecified rotator cuff tear or rupture of unspecified shoulder, not specified as traumatic; M75.00 Adhesive capsulitis of unspecified shoulder; M24.541 Contracture, right hand; G90.09 Other idiopathic peripheral autonomic neuropathy; I11.9 Hypertensive heart disease without heart failure; N31.9 Neuromuscular dysfunction of bladder, unspecified; Z96.0 Presence of urogenital implants; G47.00 Insomnia, unspecified; K21.9 Gastro-esophageal reflux disease without esophagitis; Z87.440 Personal history of urinary (tract) infections; Z98.890 Other specified postprocedural states; Z79.899 Other long term (current) drug therapy ==

== ENCOUNTER 2022-08-09 10:18 | Outpatient (CLI) | payer MEDICARE, OTHER | END 2022-08-09 23:59 | disposition home or self-care (01) | LOC: MSC 10:18 | PROVIDERS: ATTEND Internal Medicine | DX: E11.9 Type 2 diabetes mellitus without complications (principal); Z79.85 Long-term (current) use of injectable non-insulin antidiabetic drugs; E78.1 Pure hyperglyceridemia; G35 Multiple sclerosis; G83.10 Monoplegia of lower limb affecting unspecified side; R25.2 Cramp and spasm; L89.92 Pressure ulcer of unspecified site, stage 2; Z74.01 Bed confinement status; M75.100 Unspecified rotator cuff tear or rupture of unspecified shoulder, not specified as traumatic; M75.00 Adhesive capsulitis of unspecified shoulder; M24.541 Contracture, right hand; G90.09 Other idiopathic peripheral autonomic neuropathy; I11.9 Hypertensive heart disease without heart failure; N31.9 Neuromuscular dysfunction of bladder, unspecified; Z96.0 Presence of urogenital implants; G47.00 Insomnia, unspecified; K21.9 Gastro-esophageal reflux disease without esophagitis; Z87.440 Personal history of urinary (tract) infections ==

== ENCOUNTER 2022-08-24 22:50 | Emergency (ER) | payer MEDICARE, OTHER ==
[~2022-08-24] VITALS: Ht 172.7 cm; Wt 99.8 kg
--- NOTE | 2022-08-24 23:33 | NUR ---
JHONATAN FROM [facility] FOR CLOGGED SUPRAPUBIC CATHETER. SEDIMENT NOTED IN TUBING WITH MINIMAL URINE OUTPUT LAST OUTPUT 1500 C/O BLADDER FULLNESS. LAST CHANGED X1 MONTH AGO. AWAKE AND ALERT X4 BREATHING UNLABORED V/S WNL.
--- NOTE | 2022-08-25 00:01 | NUR ---
SUPRAPUBIC CATHETER DONE BY JOSH FIGUEREDO. URINE SPECIMEN SENT TO LAB
[2022-08-25 00:33] LABS: BILIRUBIN,URINE NEGATIVE (NEGATIVE); COLOR,URINE YELLOW (YELLOW); LEUKOCYTE ESTERASE ,URINE 3+ (NEGATIVE); NITRITE, URINE POSITIVE (NEGATIVE); PROTEIN,URINE NEGATIVE (NEGATIVE); UGLUCOSE NEGATIVE (NEGATIVE); UROBILINOGEN,URINE 0.2 EU/dL (0.2)
[2022-08-25 00:36] LABS: BACTERIA,URINE Many /HPF (None Seen); SQUAMOUS EPITHELIAL CELL,UR Few /HPF (None Seen); WBC,URINE TOO NUMEROUS TO COUN /HPF (0-3)
[2022-08-25] MEDS ORDERED: NITR100C6 PO (01:08)
--- NOTE | 2022-08-25 01:09 | NUR ---
[facility] WILL TRANSPORT PT BACK TO FACILITY IN 60 TO 90 MINS
[2022-08-25] MEDS ORDERED: NITROFURANTOIN/MONOHYDRATE MACROCRYSTALS 100 MG CAPSULE PO ONE (01:30)
[2022-08-25] MEDS ORDERED: NITROFURANTOIN/MONOHYDRATE MACROCRYSTALS 100 MG CAPSULE ONE (01:54)
--- NOTE | 2022-08-25 01:57 | NUR ---
REPORT GIVEN TO [facility].
[2022-08-25 03:12] VITALS: BP 141/74
--- NOTE | 2022-08-25 03:12 | NUR ---
Patient discharged to home in stable condition. Written and verbal after care instructions given. Patient verbalizes understanding of instruction.
== END 2022-08-25 03:13 ==
LOC: ER 22:56
DX: T83.098A Other mechanical complication of other urinary catheter, initial encounter (principal); R33.9 Retention of urine, unspecified; N39.0 Urinary tract infection, site not specified; G82.50 Quadriplegia, unspecified; K21.9 Gastro-esophageal reflux disease without esophagitis; G62.9 Polyneuropathy, unspecified; F41.9 Anxiety disorder, unspecified; F03.90 Unspecified dementia, unspecified severity, without behavioral disturbance, psychotic disturbance, mood disturbance, and anxiety
CPT/HCPCS: 81001; 87086-TC

== ENCOUNTER → 2022-09-06 | Outpatient (CLI) | payer MEDICARE, OTHER ==
[~2022-09-06] MED LIST: CEFU500T66 PO; NITR100C6 PO
== END | disposition home or self-care (01) ==
LOC: MSC 14:00
PROVIDERS: ATTEND Internal Medicine
DX: E11.9 Type 2 diabetes mellitus without complications (principal); Z79.85 Long-term (current) use of injectable non-insulin antidiabetic drugs; G35 Multiple sclerosis; G83.10 Monoplegia of lower limb affecting unspecified side; G83.21 Monoplegia of upper limb affecting right dominant side; R25.2 Cramp and spasm; L89.92 Pressure ulcer of unspecified site, stage 2; Z74.01 Bed confinement status; M75.100 Unspecified rotator cuff tear or rupture of unspecified shoulder, not specified as traumatic; M75.00 Adhesive capsulitis of unspecified shoulder; M24.541 Contracture, right hand; G90.09 Other idiopathic peripheral autonomic neuropathy; I11.9 Hypertensive heart disease without heart failure; N31.9 Neuromuscular dysfunction of bladder, unspecified; Z96.0 Presence of urogenital implants; G47.00 Insomnia, unspecified; K21.9 Gastro-esophageal reflux disease without esophagitis; M54.2 Cervicalgia; Z87.440 Personal history of urinary (tract) infections

== ENCOUNTER 2022-09-13 14:52 | Emergency (ER) | payer MEDICARE, OTHER ==
[~2022-09-13] VITALS: Ht 170.2 cm; Wt 100.2 kg
[~2022-09-13 14:52] MED LIST changes: -CEFU500T66 PO
[2022-09-13 14:58] VITALS: BP 123/86
--- NOTE | 2022-09-13 15:05 | NUR ---
SUPRA-PUBIC CATHETER "CLOGGED" ALL DAY,22F ACCORDING TO HER
--- NOTE | 2022-09-13 17:00 | NUR ---
SUPRAPUBIC CATHETER CHANGED ASSEPTICALLY. +DRAINING.
[2022-09-13 18:35] LABS: BILIRUBIN,URINE 1+ (NEGATIVE); COLOR,URINE YELLOW (YELLOW); LEUKOCYTE ESTERASE ,URINE 2+ (NEGATIVE); NITRITE, URINE POSITIVE (NEGATIVE); PROTEIN,URINE 1+ mg/dl (NEGATIVE); UGLUCOSE NEGATIVE (NEGATIVE)
[2022-09-13] MEDS ORDERED: CEFU500T66 PO (19:23)
--- NOTE | 2022-09-13 19:33 | NUR ---
[facility] CALLED FOR BLS GOING BACK TO SNF PER [facility]Y RESENDIZ 90 MIN
--- NOTE | 2022-09-13 19:39 | NUR ---
REPORT GIVEN TO TIM FROM [facility] FOR EFREN
[2022-09-13 20:08] LABS: RBC,URINE 81-100 /HPF (0-2)
[2022-09-13 20:09] LABS: BACTERIA,URINE 3+ /HPF (None Seen); WBC,URINE 21-50 /HPF (0-3)
--- NOTE | 2022-09-13 21:13 | NUR ---
[facility] AT PT'S BEDSIDE TO [facility] PT TO [facility]
== END 2022-09-13 21:39 ==
LOC: ER 14:54
DX: T83.098A Other mechanical complication of other urinary catheter, initial encounter (principal); N39.0 Urinary tract infection, site not specified; G82.50 Quadriplegia, unspecified; G35 Multiple sclerosis; K21.9 Gastro-esophageal reflux disease without esophagitis; F32.A Depression, unspecified; F41.9 Anxiety disorder, unspecified; Z79.899 Other long term (current) drug therapy; Z88.2 Allergy status to sulfonamides
CPT/HCPCS: 81001; 87086-TC

== ENCOUNTER → 2022-10-23 | Outpatient (CLI) | payer MEDICARE, OTHER ==
[~2022-10-23] MED LIST changes: +CEFU500T66 PO
== END | disposition home or self-care (01) ==
LOC: MSC 14:00
PROVIDERS: ATTEND Internal Medicine
DX: F32.A Depression, unspecified (principal); E66.9 Obesity, unspecified; E11.9 Type 2 diabetes mellitus without complications; Z79.85 Long-term (current) use of injectable non-insulin antidiabetic drugs; G35 Multiple sclerosis; G83.10 Monoplegia of lower limb affecting unspecified side; G83.21 Monoplegia of upper limb affecting right dominant side; G90.09 Other idiopathic peripheral autonomic neuropathy; R25.2 Cramp and spasm; I11.9 Hypertensive heart disease without heart failure; N31.9 Neuromuscular dysfunction of bladder, unspecified; Z96.0 Presence of urogenital implants; G47.00 Insomnia, unspecified; K21.9 Gastro-esophageal reflux disease without esophagitis; Z87.440 Personal history of urinary (tract) infections

== ENCOUNTER 2022-11-06 10:50 | Outpatient (CLI) | payer MEDICARE, OTHER | END 2022-11-06 23:59 | disposition home health service (06) | LOC: WOU 10:50 | PROVIDERS: ATTEND Podiatrist Foot & Ankle Surgery | DX: Z09 Encounter for follow-up examination after completed treatment for conditions other than malignant neoplasm (principal); B35.1 Tinea unguium; G35 Multiple sclerosis; L60.0 Ingrowing nail; M62.81 Muscle weakness (generalized); M21.372 Foot drop, left foot; M21.371 Foot drop, right foot; Z79.899 Other long term (current) drug therapy | CPT/HCPCS: G0463 ==

== ENCOUNTER 2022-11-15 12:00 | Outpatient (CLI) | payer MEDICARE, OTHER | END 2022-11-15 23:59 | disposition home or self-care (01) | LOC: MSC 12:00 | PROVIDERS: ATTEND Internal Medicine | DX: G35 Multiple sclerosis (principal); F32.A Depression, unspecified; E66.9 Obesity, unspecified; E11.9 Type 2 diabetes mellitus without complications; Z79.85 Long-term (current) use of injectable non-insulin antidiabetic drugs; G83.10 Monoplegia of lower limb affecting unspecified side; G83.21 Monoplegia of upper limb affecting right dominant side; G90.09 Other idiopathic peripheral autonomic neuropathy; R25.2 Cramp and spasm; I11.9 Hypertensive heart disease without heart failure; N31.9 Neuromuscular dysfunction of bladder, unspecified; Z96.0 Presence of urogenital implants; G47.00 Insomnia, unspecified; K21.9 Gastro-esophageal reflux disease without esophagitis; Z87.440 Personal history of urinary (tract) infections ==

== ENCOUNTER 2023-02-15 15:23 | Emergency (ER) | payer MEDICARE, OTHER ==
[2023-02-15 17:05] VITALS: BP 137/89; TEMP 98.1; O2SAT 98
[2023-02-15 17:21] LABS: APPEARANCE,URINE SLIGHTLY CLOUDY (CLEAR); BILIRUBIN,URINE NEGATIVE (NEGATIVE); BLOOD, URINE 3+ Ery/uL (NEGATIVE); COLOR,URINE YELLOW (YELLOW); KETONES,URINE NEGATIVE (NEGATIVE); LEUKOCYTE ESTERASE ,URINE 2+ (NEGATIVE); NITRITE, URINE NEGATIVE (NEGATIVE); PROTEIN,URINE 2+ mg/dl (NEGATIVE); UGLUCOSE NEGATIVE (NEGATIVE)
[2023-02-15 17:29] LABS: RBC,URINE 51-80 /HPF (0-2)
[2023-02-15 17:30] LABS: ADD URINE CULTURE YES; BACTERIA,URINE 2+ /HPF (None Seen); SQUAMOUS EPITHELIAL CELL,UR 0-2 /HPF (None Seen); WBC,URINE 21-50 /HPF (0-3)
[2023-02-15] MEDS ORDERED: AMOX-430 PO (22:57)
== END 2023-02-15 17:07 | disposition home or self-care (01) ==
LOC: ER 15:26
DX: N39.0 Urinary tract infection, site not specified (principal); T83.091A Other mechanical complication of indwelling urethral catheter, initial encounter; F03.90 Unspecified dementia, unspecified severity, without behavioral disturbance, psychotic disturbance, mood disturbance, and anxiety; K21.9 Gastro-esophageal reflux disease without esophagitis; F41.9 Anxiety disorder, unspecified; Z88.2 Allergy status to sulfonamides
CPT/HCPCS: 81001; 87086-TC

== ENCOUNTER → 2023-03-06 | Outpatient (CLI) | payer MEDICARE, OTHER ==
[~2023-03-06] MED LIST changes: +AMOX-430 PO
== END | disposition home or self-care (01) ==
LOC: MSC 14:15
PROVIDERS: ATTEND Internal Medicine
DX: Z51.89 Encounter for other specified aftercare (principal); L89.92 Pressure ulcer of unspecified site, stage 2; Z74.01 Bed confinement status; G82.50 Quadriplegia, unspecified; I13.10 Hypertensive heart and chronic kidney disease without heart failure, with stage 1 through stage 4 chronic kidney disease, or unspecified chronic kidney disease; E11.22 Type 2 diabetes mellitus with diabetic chronic kidney disease; N18.2 Chronic kidney disease, stage 2 (mild); Z79.85 Long-term (current) use of injectable non-insulin antidiabetic drugs; G35 Multiple sclerosis; R25.2 Cramp and spasm; E66.9 Obesity, unspecified; K64.9 Unspecified hemorrhoids; F32.A Depression, unspecified; G90.09 Other idiopathic peripheral autonomic neuropathy; N31.9 Neuromuscular dysfunction of bladder, unspecified; Z96.0 Presence of urogenital implants; G47.00 Insomnia, unspecified; K21.9 Gastro-esophageal reflux disease without esophagitis; Z87.440 Personal history of urinary (tract) infections

== ENCOUNTER → 2023-04-05 | Outpatient (CLI) | payer MEDICARE, OTHER | END | disposition home or self-care (01) | LOC: MSC 14:00 | PROVIDERS: ATTEND Internal Medicine | DX: B36.9 Superficial mycosis, unspecified (principal); L89.92 Pressure ulcer of unspecified site, stage 2; Z74.01 Bed confinement status; G82.50 Quadriplegia, unspecified; I13.10 Hypertensive heart and chronic kidney disease without heart failure, with stage 1 through stage 4 chronic kidney disease, or unspecified chronic kidney disease; E11.22 Type 2 diabetes mellitus with diabetic chronic kidney disease; N18.2 Chronic kidney disease, stage 2 (mild); Z79.85 Long-term (current) use of injectable non-insulin antidiabetic drugs; E66.9 Obesity, unspecified; K64.9 Unspecified hemorrhoids; F32.A Depression, unspecified; G35 Multiple sclerosis; R25.2 Cramp and spasm; G90.09 Other idiopathic peripheral autonomic neuropathy; N31.9 Neuromuscular dysfunction of bladder, unspecified; Z96.0 Presence of urogenital implants; G47.00 Insomnia, unspecified; K21.9 Gastro-esophageal reflux disease without esophagitis; Z87.440 Personal history of urinary (tract) infections; M75.110 Incomplete rotator cuff tear or rupture of unspecified shoulder, not specified as traumatic ==

== ENCOUNTER 2023-12-09 05:10 | Emergency (ER) | payer MEDICARE, OTHER ==
[~2023-12-09] VITALS: Ht 170.2 cm; Wt 98.4 kg
[2023-12-09] MEDS: IV NS 0.9% 1,000 ML BAG IV ONE (06:50)
[2023-12-09 07:03] LABS: BASOPHILS # (AUTO) 0.1 K/uL (0.0-0.2); BASOPHILS % (AUTO) 0.7 % (0.0-2.0); EOSINOPHILS # (AUTO) 0.1 K/uL (0.0-0.7); EOSINOPHILS % (AUTO) 1.6 % (0.0-6.0); HEMATOCRIT 47 % (33-45); LYMPHOCYTES # (AUTO) 2.7 K/uL (0.8-4.8); LYMPHOCYTES % (AUTO) 32.7 % (20.0-44.0); MEAN CORPUSCULAR HEMOGLOBIN 29 PG (26.0-33.0); MEAN CORPUSCULAR HGB CONC 34 g/dl (31.0-36.0); MEAN CORPUSCULAR VOLUME 85 fL (82-100); MONOCYTES # (AUTO) 0.9 K/uL (0.1-1.30); MONOCYTES % (AUTO) 10.6 % (2.0-12.0); NEUTROPHILS # (AUTO) 4.4 K/uL (1.8-8.9); NEUTROPHILS % (AUTO) 54.4 % (43.0-81.0); PLATELET COUNT (AUTO) 293 K/uL (150-450); RED BLOOD CELL COUNT(AUTO) 5.53 MIL/uL (4.0-5.2); WHITE BLOOD COUNT (AUTO) 8.2 K/uL (4.3-11.0)
[2023-12-09 07:15] LABS: CALCIUM, SERUM 9.2 mg/dL (8.5-10.1); CARBON DIOXIDE 25 mmol/L (21-32); CHLORIDE 101 mmol/L (98-107); CREATININE 0.6 mg/dL (0.6-1.3); GLUCOSE 185 mg/dL (74-106); POTASSIUM 3.4 mmol/L (3.5-5.1); SODIUM SERUM 135 mmol/L (136-145); UREA NITROGEN, BLOOD 12 mg/dL (7-18)
[2023-12-09 07:20] LABS: ALANINE AMINOTRANSFERASE 36 U/L (12-78); ALBUMIN 2.8 g/dL (3.4-5.0); ALKALINE PHOSPHATASE 134 U/L (46-116); ASPARTATE AMINOTRANSFERASE 13 U/L (15-37); BILIRUBIN,DIRECT 0.2 mg/dL (0.0-0.2); BILIRUBIN,TOTAL 0.7 mg/dL (0.2-1.0); LIPASE 32 U/L (16-77); TOTAL PROTEIN, SERUM 7.7 g/dL (6.4-8.2)
[2023-12-09 07:29] LABS: APPEARANCE,URINE TURBID (CLEAR); BILIRUBIN,URINE NEGATIVE (NEGATIVE); BLOOD, URINE 2+ Ery/uL (NEGATIVE); COLOR,URINE DARK YELLOW (YELLOW); KETONES,URINE 1+ mg/dL (NEGATIVE); LEUKOCYTE ESTERASE ,URINE 1+ (NEGATIVE); NITRITE, URINE NEGATIVE (NEGATIVE); PROTEIN,URINE TRACE mg/dl (NEGATIVE); UGLUCOSE 2+ mg/dL (NEGATIVE); UROBILINOGEN,URINE 0.2 EU/dL (0.2)
[2023-12-09 07:39] LABS: ADD URINE CULTURE YES; BACTERIA,URINE Few /HPF (None Seen); SQUAMOUS EPITHELIAL CELL,UR Rare /HPF (None Seen)
[2023-12-09] MEDS ORDERED: CIPR-262 PO (07:50)
[2023-12-09] MEDS ORDERED: CIPROFLOXACIN HCL 500 MG TABLET ONE ×2 (08:02→08:04)
[2023-12-09] MEDS: CIPROFLOXACIN HCL 250 MG TABLET PO ONE (08:06)
[2023-12-09 09:21] VITALS: BP 131/74; TEMP 98.4; O2SAT 99
[2023-12-09] MEDS ORDERED: PANT40TA2 PO (10:28)
[2023-12-09] MEDS ORDERED: IPRA3AMP22 IH (10:28)
[2023-12-09] MEDS ORDERED: MEMA10TA PO (10:28)
[2023-12-09] MEDS ORDERED: ESCI20TA PO (10:28)
[2023-12-09] MEDS ORDERED: METH1TAB69 PO (10:28)
[2023-12-09] MEDS ORDERED: MAGN400O6 PO (10:28)
[2023-12-09] MEDS ORDERED: CARB-273 EACHEYE (10:28)
[2023-12-09] MEDS ORDERED: POLY15DR31 EACHEYE (10:28)
[2023-12-09] MEDS ORDERED: HYDR-4076 PO (10:28)
[2023-12-09] MEDS ORDERED: CLOT15CR5 TP (10:28)
[2023-12-09] MEDS ORDERED: ASCO-352 PO (10:28)
[2023-12-09] MEDS ORDERED: BISA10SU11 RC (10:28)
[2023-12-09] MEDS ORDERED: GUAI5LIQ10 PO (10:28)
[2023-12-09] MEDS ORDERED: DIPH25TA25 PO (10:28)
[2023-12-09] MEDS ORDERED: GLUC1KIT IM (10:28)
[2023-12-09] MEDS ORDERED: LISI-768 PO (10:28)
[2023-12-09] MEDS ORDERED: SEMA0.25 SQ (10:28)
[2023-12-09] MEDS ORDERED: GABA-532 PO (10:28)
[2023-12-09] MEDS ORDERED: ACET-868 PO (10:28)
[2023-12-09] MEDS ORDERED: DAPA10TA PO (10:28)
[2023-12-09] MEDS ORDERED: ATOR80TA PO (10:28)
[2023-12-09] MEDS ORDERED: BACL20TA PO (10:28)
[2023-12-09] MEDS ORDERED: MULT-225 PO (10:28)
[2023-12-09] MEDS ORDERED: MELA5TAB PO (10:28)
[2023-12-09] MEDS ORDERED: ENOX40DI SQ (10:28)
[2023-12-09] MEDS ORDERED: ASPI-1169 PO (10:28)
[2023-12-09] MEDS ORDERED: GLAT40SY3 SQ (10:28)
[2023-12-09] MEDS ORDERED: NA P133E RC (10:28)
[2023-12-09] MEDS ORDERED: INSU100V42 SQ (10:28)
== END 2023-12-09 09:21 | disposition home or self-care (01) ==
LOC: ER 05:12
DX: U07.1 COVID-19 (principal); N39.0 Urinary tract infection, site not specified; G82.50 Quadriplegia, unspecified; K21.9 Gastro-esophageal reflux disease without esophagitis; F41.9 Anxiety disorder, unspecified; F03.90 Unspecified dementia, unspecified severity, without behavioral disturbance, psychotic disturbance, mood disturbance, and anxiety; Z88.2 Allergy status to sulfonamides
CPT/HCPCS: 99285; 96360; 71045; 87426; 93005; 85025; 80048; 87086; 83690; 80076; 81001; 36415; 84484; J7030

== ENCOUNTER 2023-12-09 09:31 | Emergency (ER) | payer MEDICARE, OTHER ==
[~2023-12-09] VITALS: Ht 170.2 cm; Wt 98.4 kg
[~2023-12-09 09:31] MED LIST changes: +CIPR-262 PO
[2023-12-09] MEDS ORDERED: DAPA10TA PO (10:28)
[2023-12-09] MEDS ORDERED: LISI-768 PO (10:28)
[2023-12-09] MEDS ORDERED: SEMA0.25 SQ (10:28)
[2023-12-09] MEDS ORDERED: ESCI20TA PO (10:28)
[2023-12-09] MEDS ORDERED: ASPI-1169 PO (10:28)
[2023-12-09] MEDS ORDERED: MAGN400O6 PO (10:28)
[2023-12-09] MEDS ORDERED: CLOT15CR5 TP (10:28)
[2023-12-09] MEDS ORDERED: MULT-225 PO (10:28)
[2023-12-09] MEDS ORDERED: PANT40TA2 PO (10:28)
[2023-12-09] MEDS ORDERED: ATOR80TA PO (10:28)
[2023-12-09] MEDS ORDERED: POLY15DR31 EACHEYE (10:28)
[2023-12-09] MEDS ORDERED: ACET-868 PO (10:28)
[2023-12-09] MEDS ORDERED: GUAI5LIQ10 PO (10:28)
[2023-12-09] MEDS ORDERED: BISA10SU11 RC (10:28)
[2023-12-09] MEDS ORDERED: ASCO-352 PO (10:28)
[2023-12-09] MEDS ORDERED: GABA-532 PO (10:28)
[2023-12-09] MEDS ORDERED: METH1TAB69 PO (10:28)
[2023-12-09] MEDS ORDERED: MEMA10TA PO (10:28)
[2023-12-09] MEDS ORDERED: GLUC1KIT IM (10:28)
[2023-12-09] MEDS ORDERED: MELA5TAB PO (10:28)
[2023-12-09] MEDS ORDERED: ENOX40DI SQ (10:28)
[2023-12-09] MEDS ORDERED: NA P133E RC (10:28)
[2023-12-09] MEDS ORDERED: CARB-273 EACHEYE (10:28)
[2023-12-09] MEDS ORDERED: INSU100V42 SQ (10:28)
[2023-12-09] MEDS ORDERED: DIPH25TA25 PO (10:28)
[2023-12-09] MEDS ORDERED: HYDR-4076 PO (10:28)
[2023-12-09] MEDS ORDERED: IPRA3AMP22 IH (10:28)
[2023-12-09] MEDS ORDERED: BACL20TA PO (10:28)
[2023-12-09] MEDS ORDERED: GLAT40SY3 SQ (10:28)
[2023-12-09] MEDS ORDERED: ACETAMINOPHEN ES 500 MG TABLET ONE (16:58)
[2023-12-09] MEDS: ACETAMINOPHEN ES 500 MG TABLET PO ONE (17:00)
[2023-12-09 19:39] VITALS: BP 130/68; TEMP 98; O2SAT 98
== END 2023-12-09 19:40 ==
LOC: ER 09:33
DX: U07.1 COVID-19 (principal); K21.9 Gastro-esophageal reflux disease without esophagitis; F03.90 Unspecified dementia, unspecified severity, without behavioral disturbance, psychotic disturbance, mood disturbance, and anxiety; Z79.899 Other long term (current) drug therapy; Z88.2 Allergy status to sulfonamides

== ENCOUNTER → 2023-12-10 | Outpatient (CLI) | payer MEDICARE, OTHER ==
[~2023-12-10] MED LIST changes: +ACET-868 PO; +ASCO-352 PO; +ASPI-1169 PO; +ATOR80TA PO; +BACL20TA PO; +BISA10SU11 RC; +CARB-273 EACHEYE; +CLOT15CR5 TP; +DAPA10TA PO; +DIPH25TA25 PO; +ENOX40DI SQ; +ESCI20TA PO; +GABA-532 PO; +GLAT40SY3 SQ; +GLUC1KIT IM; +GUAI5LIQ10 PO; +HYDR-4076 PO; +INSU100V42 SQ; +IPRA3AMP22 IH; +LISI-768 PO; +MAGN400O6 PO; +MELA5TAB PO; +MEMA10TA PO; +METH1TAB69 PO; +MULT-225 PO; +NA P133E RC; +PANT40TA2 PO; +POLY15DR31 EACHEYE; +SEMA0.25 SQ
== END | disposition home or self-care (01) ==
LOC: MSC 14:00
PROVIDERS: ATTEND Internal Medicine
DX: U07.1 COVID-19 (principal); M54.9 Dorsalgia, unspecified; L71.9 Rosacea, unspecified; B37.31 Acute candidiasis of vulva and vagina; I13.10 Hypertensive heart and chronic kidney disease without heart failure, with stage 1 through stage 4 chronic kidney disease, or unspecified chronic kidney disease; E11.22 Type 2 diabetes mellitus with diabetic chronic kidney disease; N18.2 Chronic kidney disease, stage 2 (mild); Z79.85 Long-term (current) use of injectable non-insulin antidiabetic drugs; E66.9 Obesity, unspecified; L89.92 Pressure ulcer of unspecified site, stage 2; B36.9 Superficial mycosis, unspecified; G35 Multiple sclerosis; R25.2 Cramp and spasm; K64.9 Unspecified hemorrhoids; G47.00 Insomnia, unspecified; G90.09 Other idiopathic peripheral autonomic neuropathy; N31.9 Neuromuscular dysfunction of bladder, unspecified; Z96.0 Presence of urogenital implants; K21.9 Gastro-esophageal reflux disease without esophagitis; M75.110 Incomplete rotator cuff tear or rupture of unspecified shoulder, not specified as traumatic

== ENCOUNTER 2025-06-19 16:56 | Emergency (ER) | payer MEDICARE, OTHER ==
[~2025-06-19] VITALS: Ht 162.6 cm; Wt 80.3 kg
[~2025-06-19 16:56] MED LIST changes: -AMOX-430 PO; -CEFU500T66 PO; -CIPR-262 PO; -NITR100C6 PO
[2025-06-19 16:58] VITALS: TEMP 98.5
[2025-06-19] MEDS ORDERED: CIPROFLOXACIN HCL 500 MG TABLET ONE (18:12)
[2025-06-19] MEDS: CIPROFLOXACIN HCL 500 MG TABLET PO ONE (18:12)
[2025-06-19 18:19] LABS: APPEARANCE,URINE CLEAR (CLEAR); BLOOD, URINE 3+ Ery/uL (NEGATIVE); LEUKOCYTE ESTERASE ,URINE 3+ (NEGATIVE); NITRITE, URINE POSITIVE (NEGATIVE); UGLUCOSE NEGATIVE (NEGATIVE)
[2025-06-19] MEDS ORDERED: CIPR-262 PO (18:29)
[2025-06-19 18:45] LABS: ADD URINE CULTURE YES; SQUAMOUS EPITHELIAL CELL,UR 0-2 /HPF (None Seen)
[2025-06-19 18:46] VITALS: BP 106/62; O2SAT 96
== END 2025-06-19 21:08 ==
LOC: ER 17:05
DX: N39.0 Urinary tract infection, site not specified (principal); F03.94 Unspecified dementia, unspecified severity, with anxiety; G35.D Multiple sclerosis, unspecified; G82.50 Quadriplegia, unspecified; Z79.82 Long term (current) use of aspirin; Z79.84 Long term (current) use of oral hypoglycemic drugs; Z79.899 Other long term (current) drug therapy; Z88.2 Allergy status to sulfonamides
CPT/HCPCS: 51705; 81001; 87077; 87086; 87186; 99284; A4217